=== PATIENT | female | born 1985 | race Caucasian/White ===

== ENCOUNTER 2016-11-25 19:17 | Inpatient (IN) | payer BC ==
[2016-11-25] MEDS ORDERED: Sodium Chloride 0.9% 10 ML Syringe FLUSH PRN (20:44)
[2016-11-25] MEDS ORDERED: Lidocaine 1% 30 ML SDV INJECT PRN (20:44)
[2016-11-25] MEDS ORDERED: Methylergonovine 0.2 MG/1 ML Amp IM PRN (20:44)
[2016-11-25] MEDS ORDERED: Ondansetron 4 MG/2 ML SDV IV PRN (20:44)
[2016-11-25] MEDS ORDERED: Misoprostol 400 MCG (4 X 100 MCG TAB) RECTAL PRN (20:44)
[2016-11-25] MEDS ORDERED: Lactated Ringers 500 ML IV ONE (20:44)
[2016-11-25] MEDS ORDERED: Carboprost Tromethamine 250 MCG/1 ML Amp IM PRN (20:44)
[2016-11-25] MEDS ORDERED: Lactated Ringers 1,000 ML IV SCH (20:45)
[2016-11-26] MEDS ORDERED: Nalbuphine 10 MG/1 ML Vial IVPUSH ONE (01:05)
[2016-11-26] MEDS ORDERED: Benzocaine/Menthol 20%-0.5% Spray 56 GM Canister TOP PRN (03:21)
[2016-11-26] MEDS ORDERED: Simethicone 80 MG Tab.Chew PO PRN (03:21)
[2016-11-26] MEDS ORDERED: Oxytocin 10 Units/1 ML SDV IM PRN (03:21)
[2016-11-26] MEDS ORDERED: Docusate Sodium 100 MG Cap PO PRN (03:21)
[2016-11-26] MEDS ORDERED: Zolpidem 5 MG Tab PO PRN (03:21)
[2016-11-26] MEDS: Ibuprofen 800 MG Tab PO PRN ×3 (03:42→21:28)
[2016-11-26] MEDS ORDERED: Oxytocin/Normal Saline 30 UNIT/500 ML BAG IV SCH (04:15)
--- NOTE | 2016-11-26 09:24 | HP ---
PATIENT IDENTIFICATION: Juana Plummer is a 31-year-old, G3, P2-0-0-2, intrauterine at 39-6/7 weeks, confirmed with 20-5/7 week's ultrasound, who presents with contractions. HISTORY OF PRESENT ILLNESS: The patient states she has had contractions over the last 24-48 hours. They worsened this morning, seemed to wax and wane, coming every 2-4 minutes, at times felt in the lower abdomen, getting worse over time. To put this in context, she has had a history of fast labors and deliveries. [place]. It is raining and getting close to freezing temperature. During initial evaluation, she was found to have elevated blood pressures. Denied any headaches, visual changes, or upper abdominal pain. Records were called for and reviewed as below and supplemented by patient history. OBSTETRICS HISTORY: 1. On 12/29/2013, at 40-3/7 weeks, spontaneous vaginal delivery of a male, weighing 3670 g. 2. On 07/01/2012, at 40-4/7 weeks, delivered a female, 3374 g, spontaneous vaginal delivery. ANTEPARTUM LABS: ABO blood type, A positive. Negative antibody. Rubella immune. RPR nonreactive. Negative hepatitis B surface antigen. Negative hep C, HIV, GC, and Chlamydia. Wet prep within normal limits. One-hour GTT was 131 on 09/07/2016, with hemoglobin 11.9, platelets 263 that day and GBS negative on 11/02/2016. MEDICATIONS: vitamins. ALLERGIES: None. PAST MEDICAL/PAST SURGICAL HISTORY: Remarkable for cleft palate correction bilaterally, cleft lip repair bilaterally, tonsillectomy, cholecystectomy in 2012. She has had a history of obesity, blood type A positive, history of vaginal delivery and history of chickenpox. SOCIAL HISTORY: She in fall. Her and her live in [place], [place]. Does some [employer], is at home with the kids. 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 He is originally from [place], and that is where they got . FAMILY HISTORY: Cancer involving thyroid, possibly in father. Maternal grandfather of unsure type of cancer, and paternal grandfather , unsure in the 60s. Diabetes in maternal grandmother. REVIEW OF SYSTEMS: Otherwise reviewed and felt to be noncontributory. The patient denies any headaches, visual changes, or upper abdominal pain. OBJECTIVE: Vital Signs: Blood pressure initially was 147/84, recheck was 145/71, heart rate between 110-120, temperature is 97.7. Appearance: Female, appears her stated age, acting appropriate for age, nontoxic in appearance. HEENT: Head is atraumatic. EOMs intact. PERRLA. No scleral icterus. No obvious otorhinorrhea. Mucous membranes are moist with evidence of cleft lip and cleft palate repair. Neck: No obvious masses or lesions. Lungs: Clear to auscultation bilaterally. Heart: S1, S2. Regular rate and rhythm. Abdomen: Gravid, Michael's indeterminate. Nontender and nondistended. Bowel sounds are positive. No other organomegaly, pulsatile masses, or obvious hernias. No rebound, rigidity, or guarding. Monitors applied. : Per nursing, almost 4 cm dilated, vertex suspected. Tocometer reveals occasional contractions, some as close as every 4 minutes. heart tones have been found to be reactive and reassuring with a baseline around the 135 range. LABORATORY DATA: Pending is a CBC, BUN, creatinine, uric acid, AST, ALT, urinalysis, and urine protein-creatinine ratio. ASSESSMENT: 1. Intrauterine at 39-6/7 weeks, confirmed with 20-5/7 week's ultrasound. 2. Gestational hypertension, rule out preeclampsia/HELLP. 3. Active labor. 4. History of fast labor and deliveries. 5. Group B Streptococcus negative. 6. 3, para 2-0-0-2. PLAN: Due to her gestational hypertension, she will be admitted. We will follow clinically and closely. Consider artificial rupture of membranes after we watch her for a short period of time and rule out preeclampsia. The plans were discussed with patient and shared decision was made in regard to this. [facility] /[id number]
--- NOTE | 2016-11-26 09:42 | DEL ---
DATE: 11/26/2016 PREOPERATIVE DIAGNOSES: 1. Intrauterine at 40 weeks, confirmed with 20-5/7th weeks' ultrasound. 2. Gestational hypertension. 3. Active labor. 4. History of fast labors and deliveries. 5. Group B Streptococcus negative. 6. 3, para 2-0-0-2. POSTOPERATIVE DIAGNOSES: 1. Intrauterine at 40 weeks, confirmed with 20-2/7th weeks' ultrasound-delivered. 2. Gestational hypertension. 3. Active labor. 4. History of fast labors and deliveries. 5. Group B Streptococcus negative. 6. 3, para 2-0-0-2. 7. First-degree perineal abrasion non-bleeding, non-repaired after discussion with the patient. 8. Nuchal cord x1, reduced bluntly with delivery. PROCEDURES PERFORMED: NST followed by artificial rupture of membranes on 11/25/2016, followed by spontaneous vaginal delivery on 11/26/2016. HARDBOARD GRINDER: Max Neves, MS III. ANESTHESIA/ANAGLESIA: The patient received some Nubain in the first stage of labor. ESTIMATED BLOOD LOSS: 200 mL. FINDINGS: Female, scores and weight are pending. SUMMARY OF EVENTS: The patient is a 31-year-old, G3, P2-0-0-2, intrauterine at 39-6/7th weeks on date of admission 11/25/2016, found to have gestational hypertension, was in active labor with history of fast labors and deliveries. She was subsequently admitted and underwent NST followed by artificial rupture of membranes. She received some Nubain in the first stage of labor. She suddenly had the urge to push. With serial evaluations, was found to be complete and prior to the bed being broken down, she subsequently pushed and delivered vertex in an JOHN presentation followed by anterior and posterior shoulder without difficulty. Mouth and nares were suctioned, cord was doubly clamped and cut, and infant was resuscitated on mother's abdomen. Of note, there was a nuchal cord x1, and this was reduced bluntly with delivery. Then, approximately 10 mL of cord blood was obtained for labs. Placenta was then delivered with gentle cord traction within 10 minutes. Perineum, vagina, and perirectal areas were then examined with a first-degree perineal abrasion non-bleeding, non-repaired after discussion with the patient. Mother and are currently stable at the time of dictation. [facility] /[id number]
[2016-11-26] MEDS: Acetaminophen 325 MG Tab PO PRN (09:43)
[2016-11-26] MEDS: Prenatal Multivitamin with Calcium/Folic Acid/Iron Tab PO SCH (09:43)
--- NOTE | 2016-11-26 09:48 | PN ---
DATE: 11/26/2016 SUBJECTIVE: The patient is lying in bed having strong contraction at this time. She describes the pain as tolerable and wishes to continue without an intrathecal oral pain medication at this time, but would like to discuss the option later if the pain becomes unbearable. OBJECTIVE: heart rate is in the 150s to 160s. On physical exam, cervix was dilated to 6 cm and 90% effaced. ASSESSMENT AND PLAN: 1. This is an intrauterine at 39 weeks 6 days. 2. Gestational hypertension. 3. Active labor. 4. History of fast labor/delivery. 5. Group B Streptococcus negative. 6. G3, P2-0-0-2. Given the strong contractions and progressing dilation of the cervix, we will continue without Pitocin at this time. Continue to monitor dilation of the cervix and heart rate. [facility] /[id number]
--- NOTE | 2016-11-26 10:15 | PN ---
DATE: 11/25/2016 SUBJECTIVE: The patient feels occasional contractions. She has been walking. OBJECTIVE: heart tones in the 150s range. Appears to be reactive at current time of dictation. Tocometer reveals no evidence of contraction. Vaginal exam revealed her to be 3-4 cm, 75% effaced, -1 station, vertex suspected. Artificial rupture of membranes done after discussion with the patient. ASSESSMENT AND PLAN: Intrauterine at 39-6/7th weeks confirmed with 20- 5/7th weeks' ultrasound complicated by gestational hypertension with recent preeclampsia. HELLP labs within normal limits. No evidence of preeclampsia with protein-creatinine ratio being 0.1. No thrombocytopenia. AST and ALT were within normal limits as well. She is now status post artificial rupture of membranes, has history of fast labors and deliveries. We will continue to follow clinically and closely, re- evaluate in a couple of hours, and consider Pitocin if need be at that time. The patient understands and agrees with the above treatment plan. [facility] /[id number]
--- NOTE | 2016-11-26 10:32 | OBOUT ---
DATE: 11/25/2016 DATE AND TIME OF NST: Date: 11/25/2016. Time: 1950 hours to 2010 hours. REASON FOR NST: 1. Intrauterine at 39-6/7th weeks. 2. Gestational hypertension, rule out preeclampsia/HELLP. 3. Active labor. 4. History of fast labors and deliveries. 5. Group B Strep negative. 6. 3, para 2-0-0-2. NST INTERPRETATION: During this time period, heart tone baseline is approximately 150 and there are at least two 15 x 15 beat per minute accelerations, making this strip reactive. It is also noted to be reassuring. Tocometer reveals potential of 3-4 contractions felt by patient. ASSESSMENT AND PLAN: 1. Non-stress test - reactive and reassuring. 2. Tocometer with contractions. PLAN: Please see admit history and physical for further details. [facility] /[id number]
[2016-11-27] MEDS: Ibuprofen 800 MG Tab PO PRN ×2 (06:55→19:49)
[2016-11-27] MEDS: Prenatal Multivitamin with Calcium/Folic Acid/Iron Tab PO SCH (09:31)
--- NOTE | 2016-11-27 12:27 | PN ---
DATE: 11/27/2016 SUBJECTIVE: Mom is in room with and baby, sitting on bed in no acute distress. She has been having minimal abdominal pain, described as a 2/10. She has been sleeping well. Mood is normal. baby is going well every 2 to 3 hours. She has been able to get some sleep and rest and she has no complaints at this time. OBJECTIVE: Vital Signs: Temp is 97.3, pulse is 97, blood pressure 113/88, respirations 16, and O2 sats are 99%. Appearance: She is sitting in a bed, in no acute distress. HEENT: Head is atraumatic. Pupils are equal, round, and reactive to light and accommodation. No scleral icterus noted. Nose, ears, and throat appear normal with no deformities. Evidence of cleft lip and cleft palate repair. Lungs: Clear to auscultation bilaterally. S1 and S2 normal. Regular rate and rhythm with no extra heart sounds. Abdomen: Nontender and nondistended. Bowel sounds are present. No masses noted on exam. LABORATORY DATA: WBC is 13.4, RBC is 3.82, hemoglobin 10.8, hematocrit 33.8, MCV 88.5, MCH 28.3, MCHC 32.0, and platelet count 237. ASSESSMENT: 1. Intrauterine at 40 weeks. 2. Gestational hypertension. 3. History of fast labor. 4. Group B strep negative. 5. G 3, 9 2-0-0-2. PLAN: As the patient is doing well and no concerns at this time, we will continue to monitor, continue to breastfeed, continue to ambulate and will consider discharge tomorrow if everything is still going well. [facility] /[id number]
[2016-11-27] MEDS: Acetaminophen 325 MG Tab PO PRN (13:19)
[2016-11-28] MEDS: Acetaminophen 325 MG Tab PO PRN (01:06)
[2016-11-28] MEDS: Prenatal Multivitamin with Calcium/Folic Acid/Iron Tab PO SCH ×2 (07:58→08:27)
[2016-11-28] MEDS: Ibuprofen 800 MG Tab PO PRN (07:58)
[2016-11-28 10:11] VITALS: BP 119/76
--- NOTE | 2016-11-28 11:43 | PN ---
DATE: 11/28/2016 SUBJECTIVE: Mom is in room with and baby sitting in chair in no acute distress. Mom did note a slight headache this morning, but was given Tylenol and has not had a problem with that since. No other symptoms including lightheadedness, dizziness, or visual changes were noted. Mom has been having no pain, has been able to ambulate. No concerns with bowel or bladder. Her mood is normal. with baby has been going well every 2 to 3 hours. She has no concerns or questions for herself or for baby and is ready for discharge at this time. OBJECTIVE: Vital Signs: Temperature is 98.3, pulse is 92, blood pressure is 119/76, respirations 16, and O2 saturation is 97. Appearance: Mom is sitting in chair, in no acute distress. HEENT: Head is atraumatic. Pupils are equal, round, reactive to light and accommodation. No scleral icterus noted. Evidence of a cleft lip and cleft palate repair. Nose, ears, and throat appear normal and with no deformities. Lungs: Clear to auscultation bilaterally. Heart: S1 and S2 are normal. Regular rate and rhythm. No extra heart sounds noted. Abdomen: Soft, nontender, nondistended. Bowel sounds are present. No masses noted on exam. ASSESSMENT: 1. Intrauterine at 40 weeks- delivered and in day #2 2. Gestational hypertension. 3. History of fast labor. 4. Group B strep negative. 5. 3, para 2-0-0-2. PLAN: The patient is doing well, has no concerns for herself or baby at this time. We will discharge today. Both her and baby have a followup appointment on Tuesday in clinic. Instructions given to mom of signs and symptoms that would prompt re-evaluation before that time including fever, heavy bleeding, any sudden onset of headache, dizziness, or visual changes. Mom agrees with this plan and is ready for discharge at this time. [facility] /[id number] [place]
--- NOTE | 2016-11-29 11:00 | DISCH ---
ADMISSION DIAGNOSES: 1. Intrauterine at 39-6/7th weeks confirmed with 20-5/7th weeks' ultrasound. 2. Gestational hypertension. 3. Active labor. 4. History of fast labor and deliveries. 5. Group B Strep negative. 6. 3, para 2-0-0-2. DISCHARGE DIAGNOSES: 1. Intrauterine at 40 weeks - delivered. 2. Gestational hypertension. 3. Active labor. 4. History of fast labor and deliveries. 5. Group B Strep negative. 6. 3, para 2-0-0-2. 7. First-degree perineal abrasion, nonbleeding, non-repaired after discussion. 8. Nuchal cord x1, reduced bluntly at delivery. PROCEDURE PERFORMED: NST, artificial rupture of membranes and subsequent spontaneous vaginal delivery on 11/26/2016. HISTORY OF PRESENT ILLNESS: Please see H and P. SUMMARY OF HOSPITAL COURSE: The patient was admitted on the above date with the above diagnoses, underwent above procedures, then went on to have a spontaneous vaginal delivery yielding a female, scores 8 and 9, weighing 7 pounds 1 ounce (3215 g). Please see delivery note for further details. day #1, please see progress note. day #2, date of discharge, please see progress note. Exam, history done in conjunction with Max Neves, MS-III. CONDITION ON DISCHARGE COMPARED TO CONDITION ON ADMISSION: Improved. DISCHARGE INSTRUCTIONS: 1. Diet as tolerated. 2. Activity, no lifting more than 10 to 15 pounds. 3. No sit-ups, straining and pelvic rest for next 6 weeks with immediate return to fertility discussed with the patient. 4. Reasons to return or go to the emergency room were discussed with the patient in detail including, but not limited to, temperature of greater than 100.4, foul-smelling discharge, red, hot tender breasts, or increased vaginal bleeding. DISCHARGE MEDICATIONS: [id number] Tylenol or ibuprofen for pain. FOLLOWUP: Follow up [address] Shea, her PCP, or Dr. Mora. PLAN: I did discuss following up with her infant on 11/30/2016, as well as reasons to return or go to the emergency room in regard to her infant and ramifications of not following up as instructed. She understands and agrees with the above treatment plan. [facility] /[id number]
== END 2016-11-28 12:23 | disposition home or self-care (01) | DRG 560 ==
LOC: DL.OBCHECK 19:17 → DL.OB 20:49 → OBSVTOIN 11-26 02:59
PROVIDERS: ADMIT Family Medicine; ATTEND Family Medicine
PROC: 10E0XZZ Delivery of Products of Conception, External Approach (ICD-10-PCS; principal; 2016-11-26)
PROC: 10907ZC Drainage of Amniotic Fluid, Therapeutic from Products of Conception, Via Natural or Artificial Opening (ICD-10-PCS; principal; 2016-11-26)
DX: O13.4 Gestational [pregnancy-induced] hypertension without significant proteinuria, complicating childbirth (principal); O69.81X0 Labor and delivery complicated by cord around neck, without compression, not applicable or unspecified; Z3A.40 40 weeks gestation of pregnancy; Z37.0 Single live birth
CPT/HCPCS: 36415; 81003; 82565; 82570; 84156; 84450; 84460; 84520; 84550; 85027; A9270-GY; J2300; J2590; J7120